=== PATIENT | female | born 1960 | race Caucasian/White ===

== ENCOUNTER 2018-10-06 13:31 | Inpatient (IN) | payer MEDICAID ==
[~2018-10-06] VITALS: Ht 165.1 cm; Wt 87.5 kg
[2018-10-06 13:42] VITALS: BP 226/102
[2018-10-06] MEDS ORDERED: KETOROLAC 30 MG/ML VIAL IVP ONE (13:55)
[2018-10-06] MEDS ORDERED: FUROSEMIDE 40 MG/4 ML VIAL IVP ONE (13:55)
[2018-10-06 14:27] LABS: BASOPHILS # (AUTO) 0.1 K/uL (0.00-0.22); EOSINOPHILS # (AUTO) 0.1 K/uL (0-0.4); EOSINOPHILS % (AUTO) 2.1 % (0.0-4.0); HEMATOCRIT 30.3 % (36-48); HEMOGLOBIN 9.7 g/dL (12.0-16.0); LYMPHOCYTES # (AUTO) 1.3 K/uL (2.5-16.5); MEAN CORPUSCULAR HEMOGLOBIN 31 pg (27-31); MEAN CORPUSCULAR HGB CONC 32 g/dL (33-37); MEAN CORPUSCULAR VOLUME 95.6 fL (80-94); MONOCYTES # (AUTO) 0.4 K/uL (0.8-1.0); MONOCYTES % (AUTO) 6.3 % (1.7-9.3); NEUTROPHILS # (AUTO) 4.2 K/uL (1.8-7.7); NEUTROPHILS % (AUTO) 69.6 % (42.2-75.2); PLATELET COUNT (AUTO) 296 K/uL (140-450); RED BLOOD CELL COUNT(AUTO) 3.16 MIL/uL (4.20-5.40); RED CELL DISTRIBUTION WIDTH 15.6 % (11.6-13.7)
[2018-10-06] MEDS ORDERED: cloNIDine 0.1 MG TAB PO ONE (14:35)
[2018-10-06 14:42] LABS: ALBUMIN 2.2 g/dL (3.4-5.0); ANION GAP 12.1 (8-16); CARBON DIOXIDE 24.2 mmol/L (21-32); CREATININE 2.4 mg/dL (0.6-1.3); TOTAL BILIRUBIN 0.2 mg/dL (0.0-1.0)
[2018-10-06 14:44] LABS: POTASSIUM 6.3 mmol/L (3.5-5.1)
[2018-10-06] MEDS ORDERED: NIFE60TE8 PO (14:45)
[2018-10-06] MEDS ORDERED: FURO-570 PO (14:45)
[2018-10-06] MEDS ORDERED: GABA400C PO (14:45)
[2018-10-06] MEDS ORDERED: ATOR20TA PO (14:45)
[2018-10-06] MEDS ORDERED: traMADol 50 MG TAB PO ONE (14:45)
[2018-10-06] MEDS ORDERED: METF1000 PO (14:45)
[2018-10-06 14:48] LABS: PROTHROMBIN TIME 9.6 secs (10.8-13.4)
[2018-10-06] MEDS ORDERED: CALCIUM GLUCONATE 10% 1,000 MG in NACL 0.9% 50 ML IV ONE (14:55)
[2018-10-06] MEDS ORDERED: ALBUTEROL 0.083% 2.5 MG/3 ML NEBU INH ONE (14:55)
[2018-10-06] MEDS ORDERED: DEXTROSE 50% 50 ML SYR IVP ONE (14:55)
[2018-10-06] MEDS ORDERED: SODIUM POLYSTYRENE 15 GM/60 ML UDBTL PO ONE (14:55)
[2018-10-06] MEDS ORDERED: INSULIN REGULAR, HUMAN 100 UNIT/ML VIAL IVP ONE (14:55)
[2018-10-06] MEDS ORDERED: CALCIUM GLUCONATE 10% 1000 MG/10 ML VIAL ONE (15:11)
[2018-10-06] MEDS ORDERED: DOCUSATE SODIUM 100 MG GELCAP PO PRN (15:15)
[2018-10-06] MEDS ORDERED: HYDROcodone/APAP 5/325 MG 1 TAB TAB PO PRN (15:15)
[2018-10-06] MEDS ORDERED: ACETAMINOPHEN 325 MG TAB PO PRN (15:15)
[2018-10-06] MEDS ORDERED: hydrALAZINE 20 MG/ML VIAL IVP ONE (15:40)
[2018-10-06 15:53] LABS: APPEARANCE,URINE CLEAR (CLEAR); BILIRUBIN,URINE NEGATIVE (NEGATIVE); BLOOD, URINE 1+ (NEGATIVE); COLOR,URINE YELLOW (YELLOW); LEUKOCYTE ESTERASE ,URINE NEGATIVE (NEGATIVE); NITRITE, URINE NEGATIVE (NEGATIVE); PH,URINE 6.5 (5.0-9.0); UGLUCOSE TRACE (NEGATIVE)
[2018-10-06 15:59] LABS: BARBITURATE, URINE NEG. ng/ml (NEG <=200); BENZODIAZEPINE, URINE NEG. ng/mL (NEG <=200); CANNABINOID, URINE NEG. ng/mL (NEG <=50); COCAINE, URINE NEG. ng/mL (NEG <=300); OPIATE, URINE NEG. ng/mL (NEG <=2000); PHENCYCLIDINE SCREEN,URINE NEG. ng/mL (NEG <=25)
[2018-10-06] MEDS ORDERED: DEXTROSE 50% 50 ML SYR IVP PRN (16:05)
[2018-10-06] MEDS ORDERED: INSULIN LISPRO SLIDING SCALE 100 UNITS/ML VIAL SUBQ PRN (16:05)
[2018-10-06 16:11] LABS: CHOL/HDL RATIO 3.1 (1-4.5); MAGNESIUM 2.1 mg/dL (1.8-2.4); PHOSPHORUS 4.5 mg/dL (2.5-4.9); THYROID STIMULATING HORMONE 3.94 uIU/mL (0.34-3.74)
[2018-10-06 16:20] VITALS: BP 135/62
[2018-10-06 16:26] LABS: RBC,URINE 3-10 (FEW) /HPF (0-5); WBC,URINE 0-5 (RARE) /HPF (0-5)
[2018-10-06] MEDS: BLOOD GLUCOSE MONITORING 1 DEV DEV FS SCH ×2 (17:10→20:50)
[2018-10-06 20:00] VITALS: BP 166/74
[2018-10-06] MEDS: ATORVASTATIN 20 MG TAB PO SCH (20:52)
[2018-10-06] MEDS: hydrALAZINE 25 MG TAB PO SCH (20:52)
[2018-10-06] MEDS: ONDANSETRON 4 MG/2 ML VIAL IM/IVP PRN (20:53)
[2018-10-06 20:56] LABS: CARBON DIOXIDE 25.1 mmol/L (21-32); CREATININE 2.5 mg/dL (0.6-1.3)
[2018-10-06 21:00] LABS: POTASSIUM 6.1 mmol/L (3.5-5.1)
[2018-10-06] MEDS ORDERED: NIFEdipine 30 MG TABER PO SCH (21:00)
[2018-10-06] MEDS ORDERED: SODIUM POLYSTYRENE 15 GM/60 ML UDBTL PO SCH (21:30)
[2018-10-07] VITALS: BP 189/93
[2018-10-07] MEDS ORDERED: cloNIDine 0.1 MG TAB PO PRN (00:55)
[2018-10-07] MEDS: ONDANSETRON 4 MG/2 ML VIAL IM/IVP PRN (01:28)
[2018-10-07 01:49] LABS: BARBITURATE, URINE NEG. ng/ml (NEG <=200); BENZODIAZEPINE, URINE NEG. ng/mL (NEG <=200); CANNABINOID, URINE NEG. ng/mL (NEG <=50); COCAINE, URINE NEG. ng/mL (NEG <=300); OPIATE, URINE NEG. ng/mL (NEG <=2000); PHENCYCLIDINE SCREEN,URINE NEG. ng/mL (NEG <=25)
[2018-10-07 04:00] VITALS: BP 145/65
[2018-10-07 05:46] LABS: BASOPHILS # (AUTO) 0.1 K/uL (0.00-0.22); BASOPHILS % (AUTO) 1.2 % (0.0-2.0); EOSINOPHILS # (AUTO) 0.1 K/uL (0-0.4); EOSINOPHILS % (AUTO) 1.7 % (0.0-4.0); HEMATOCRIT 24.8 % (36-48); LYMPHOCYTES # (AUTO) 0.9 K/uL (2.5-16.5); LYMPHOCYTES % (AUTO) 20.6 % (20.5-51.1); MEAN CORPUSCULAR HEMOGLOBIN 31 pg (27-31); MEAN CORPUSCULAR HGB CONC 32 g/dL (33-37); MEAN CORPUSCULAR VOLUME 95.2 fL (80-94); MONOCYTES # (AUTO) 0.3 K/uL (0.8-1.0); MONOCYTES % (AUTO) 7.3 % (1.7-9.3); NEUTROPHILS % (AUTO) 69.2 % (42.2-75.2); PLATELET COUNT (AUTO) 230 K/uL (140-450); RED BLOOD CELL COUNT(AUTO) 2.61 MIL/uL (4.20-5.40); RED CELL DISTRIBUTION WIDTH 15.5 % (11.6-13.7); WHITE BLOOD COUNT (AUTO) 4.3 K/uL (4.8-10.8)
[2018-10-07 06:31] LABS: ANION GAP 12.5 (8-16); CARBON DIOXIDE 21.7 mmol/L (21-32); CREATININE 2.5 mg/dL (0.6-1.3)
[2018-10-07 06:45] LABS: POTASSIUM 6.2 mmol/L (3.5-5.1)
[2018-10-07] MEDS ORDERED: BISACODYL 10 MG SUPP RC SCH (06:45)
[2018-10-07] MEDS: BLOOD GLUCOSE MONITORING 1 DEV DEV FS SCH ×4 (06:51→20:14)
[2018-10-07] MEDS ORDERED: INSULIN REGULAR, HUMAN 100 UNIT/ML VIAL IVP SCH (07:30)
[2018-10-07] MEDS: DEXTROSE 50% 50 ML SYR IVP SCH ×2 (07:30→08:07)
[2018-10-07 08:00] VITALS: BP 141/69
[2018-10-07] MEDS: hydrALAZINE 25 MG TAB PO SCH ×3 (08:45→17:12)
[2018-10-07] MEDS: NIFEdipine 60 MG TABER PO SCH (08:45)
[2018-10-07] MEDS ORDERED: FUROSEMIDE 40 MG/4 ML VIAL IVP SCH (09:00)
[2018-10-07 11:45] VITALS: BP 126/63
[2018-10-07 13:14] LABS: ANION GAP 10.3 (8-16); CARBON DIOXIDE 24.3 mmol/L (21-32); POTASSIUM 5.6 mmol/L (3.5-5.1)
[2018-10-07 13:15] LABS: CREATININE 2.6 mg/dL (0.6-1.3)
[2018-10-07] MEDS ORDERED: NACL 0.9% 1,000 ML IV SCH (13:50)
[2018-10-07] MEDS ORDERED: SODIUM POLYSTYRENE 15 GM/60 ML UDBTL PO SCH (14:00)
[2018-10-07 16:00] VITALS: BP 129/63
[2018-10-07 17:56] LABS: ANION GAP 10.5 (8-16); CREATININE 2.8 mg/dL (0.6-1.3); POTASSIUM 5.5 mmol/L (3.5-5.1)
[2018-10-07 20:00] VITALS: BP 110/59
[2018-10-07] MEDS: FUROSEMIDE 20 MG/2 ML VIAL IVP SCH (20:15)
[2018-10-07] MEDS: ATORVASTATIN 20 MG TAB PO SCH (20:19)
[2018-10-07 22:30] LABS: ANION GAP 10.3 (8-16); CARBON DIOXIDE 24.2 mmol/L (21-32); CREATININE 2.8 mg/dL (0.6-1.3); POTASSIUM 5.5 mmol/L (3.5-5.1)
[2018-10-08] VITALS (7 sets, daily range): BP systolic 130–174; BP diastolic 62–81
[2018-10-08] MEDS: BLOOD GLUCOSE MONITORING 1 DEV DEV FS SCH ×4 (06:48→21:02)
[2018-10-08] MEDS ORDERED: cloNIDine 0.1 MG TAB PO PRN (07:10)
[2018-10-08] MEDS ORDERED: SODIUM POLYSTYRENE 15 GM/60 ML UDBTL PO SCH ×2 (07:30)
[2018-10-08 08:26] LABS: FOLIC ACID 5.9 ng/mL (>3.0)
[2018-10-08] MEDS: NIFEdipine 60 MG TABER PO SCH (08:40)
[2018-10-08] MEDS ORDERED: HYDR-4420 PO (08:40)
[2018-10-08] MEDS: hydrALAZINE 25 MG TAB PO SCH ×4 (08:40→21:04)
[2018-10-08] MEDS: FUROSEMIDE 20 MG/2 ML VIAL IVP SCH (08:41)
[2018-10-08] MEDS ORDERED: FUROSEMIDE 20 MG/2 ML VIAL IVP SCH (09:00)
[2018-10-08] MEDS ORDERED: hydrALAZINE 20 MG/ML VIAL IVP SCH (11:00)
[2018-10-08 18:57] LABS: BASOPHILS # (AUTO) 0.1 K/uL (0.00-0.22); BASOPHILS % (AUTO) 1.1 % (0.0-2.0); EOSINOPHILS # (AUTO) 0.2 K/uL (0-0.4); EOSINOPHILS % (AUTO) 3.6 % (0.0-4.0); HEMOGLOBIN 8.1 g/dL (12.0-16.0); LYMPHOCYTES # (AUTO) 1.5 K/uL (2.5-16.5); LYMPHOCYTES % (AUTO) 26.9 % (20.5-51.1); MEAN CORPUSCULAR HEMOGLOBIN 31 pg (27-31); MEAN CORPUSCULAR HGB CONC 32 g/dL (33-37); MEAN CORPUSCULAR VOLUME 94.9 fL (80-94); MONOCYTES # (AUTO) 0.4 K/uL (0.8-1.0); MONOCYTES % (AUTO) 7.8 % (1.7-9.3); NEUTROPHILS # (AUTO) 3.3 K/uL (1.8-7.7); NEUTROPHILS % (AUTO) 60.6 % (42.2-75.2); PLATELET COUNT (AUTO) 248 K/uL (140-450); RED BLOOD CELL COUNT(AUTO) 2.64 MIL/uL (4.20-5.40); RED CELL DISTRIBUTION WIDTH 14.8 % (11.6-13.7); WHITE BLOOD COUNT (AUTO) 5.5 K/uL (4.8-10.8)
[2018-10-08 19:11] LABS: ANION GAP 9.9 (8-16); CARBON DIOXIDE 26.1 mmol/L (21-32); CREATININE 2.9 mg/dL (0.6-1.3)
[2018-10-08] MEDS: ATORVASTATIN 20 MG TAB PO SCH (21:04)
[2018-10-09 03:41] VITALS: BP 138/67
[2018-10-09 06:04] LABS: ANION GAP 11.6 (8-16); CARBON DIOXIDE 24.3 mmol/L (21-32); CREATININE 3.1 mg/dL (0.6-1.3); POTASSIUM 4.9 mmol/L (3.5-5.1)
[2018-10-09] MEDS: BLOOD GLUCOSE MONITORING 1 DEV DEV FS SCH ×4 (06:34→20:07)
[2018-10-09 08:00] VITALS: BP 176/84
[2018-10-09] MEDS: hydrALAZINE 25 MG TAB PO SCH ×3 (08:41→17:47)
[2018-10-09] MEDS: NIFEdipine 60 MG TABER PO SCH (08:41)
[2018-10-09] MEDS ORDERED: FUROSEMIDE 20 MG TAB PO SCH (09:00)
[2018-10-09] MEDS ORDERED: FURO20TA8 PO (09:11)
[2018-10-09] MEDS ORDERED: HYDR-4420 PO (09:11)
[2018-10-09] MEDS ORDERED: ADA60 PO (09:11)
[2018-10-09] MEDS ORDERED: GLIP10TE PO (11:20)
[2018-10-09] MEDS ORDERED: GABA400C PO (11:41)
[2018-10-09 12:00] VITALS: BP 181/77
[2018-10-09] MEDS ORDERED: hydrALAZINE 25 MG TAB PO SCH (12:30)
[2018-10-09 16:00] VITALS: BP 159/77
[2018-10-09 20:00] VITALS: BP 148/76
[2018-10-09] MEDS: ATORVASTATIN 20 MG TAB PO SCH (20:09)
[2018-10-09] MEDS ORDERED: INFLUENZA VIRUS VACCINE QUAD 0.5 ML SYR IMVAC PRN (20:30)
[2018-10-09] MEDS ORDERED: PNEUMOCOCCAL VACCINE 23 MCG/0.5 ML VIAL IMVAC PRN (20:30)
[2018-10-10 00:05] VITALS: BP 145/67
[2018-10-10 04:00] VITALS: BP 158/82
[2018-10-10] MEDS: ONDANSETRON 4 MG/2 ML VIAL IM/IVP PRN (05:22)
[2018-10-10] MEDS: BLOOD GLUCOSE MONITORING 1 DEV DEV FS SCH ×3 (05:25→14:40)
[2018-10-10 08:00] VITALS: BP 179/82
[2018-10-10] MEDS: hydrALAZINE 25 MG TAB PO SCH ×3 (08:14→16:16)
[2018-10-10] MEDS: NIFEdipine 60 MG TABER PO SCH (08:14)
[2018-10-10 08:55] LABS: ANION GAP 11.4 (8-16); CARBON DIOXIDE 24.5 mmol/L (21-32); CREATININE 2.9 mg/dL (0.6-1.3); POTASSIUM 4.9 mmol/L (3.5-5.1)
[2018-10-10] MEDS ORDERED: NIFEdipine 30 MG TABER PO SCH (11:00)
[2018-10-10] MEDS ORDERED: hydrALAZINE 25 MG TAB PO SCH (11:00)
[2018-10-10 12:00] VITALS: BP 165/75
[2018-10-10] MEDS ORDERED: ENALAPRILAT 2.5 MG/2 ML VIAL IVP SCH (13:00)
[2018-10-10] MEDS ORDERED: TRAM50TA1 PO (14:55)
[2018-10-10 16:00] VITALS: BP 125/67
== END 2018-10-10 16:25 | disposition home or self-care (01) | DRG 52 ==
LOC: MED 13:31 → MTU 15:17
PROVIDERS: ADMIT General Practice; ATTEND General Practice
PROC: 3E0234Z Introduction of Serum, Toxoid and Vaccine into Muscle, Percutaneous Approach (ICD-10-PCS; principal; 2018-10-09)
PROC: 3E02340 Introduction of Influenza Vaccine into Muscle, Percutaneous Approach (ICD-10-PCS; 2018-10-09)
DX: I67.4 Hypertensive encephalopathy (principal); N17.0 Acute kidney failure with tubular necrosis; E43 Unspecified severe protein-calorie malnutrition; I50.43 Acute on chronic combined systolic (congestive) and diastolic (congestive) heart failure; E87.5 Hyperkalemia; N18.9 Chronic kidney disease, unspecified; Z68.32 Body mass index [BMI] 32.0-32.9, adult; E66.9 Obesity, unspecified; Z71.3 Dietary counseling and surveillance; D64.9 Anemia, unspecified; E83.51 Hypocalcemia; I11.0 Hypertensive heart disease with heart failure; E11.22 Type 2 diabetes mellitus with diabetic chronic kidney disease; E78.5 Hyperlipidemia, unspecified; D63.8 Anemia in other chronic diseases classified elsewhere; E66.01 Morbid (severe) obesity due to excess calories; E11.21 Type 2 diabetes mellitus with diabetic nephropathy; Z91.19 Patient's noncompliance with other medical treatment and regimen; R60.9 Edema, unspecified; Z23 Encounter for immunization
CPT/HCPCS: 36415; 70450; 71045; 80048; 80053; 80305; 81001; 82272; 82570; 82607; 82728; 82746; 82948; 83036; 83540; 83690; 83735; 83880; 84100; 84134; 84443; 84484; 85025; 85045; 85610; 85730; 86160; 87081; 90658; 90732; 93005; 93976; 94640; 96365; 96375; 99285; J0360; J0610; J1815; J1885; J1940; J2405; J3490; J7030; J7613; Q0092

== ENCOUNTER 2018-11-06 14:04 | Inpatient (IN) | payer MEDICAID ==
[~2018-11-06] VITALS: Ht 157.5 cm; Wt 90.7 kg
[~2018-11-06 14:04] MED LIST: ADA60 PO; ATOR20TA PO; FURO20TA8 PO; GABA400C PO; GLIP10TE PO; HYDR-4420 PO; TRAM50TA1 PO
--- NOTE | 2018-11-06 14:10 | NUR ---
PT TO ER BED 7
--- NOTE | 2018-11-06 14:24 | NUR ---
PT PROVIDING URINE AT THIS TIME.
[2018-11-06 14:27] VITALS: BP 199/104
--- NOTE | 2018-11-06 14:38 | NUR ---
PATIENT PRESENTS TO ED WITH THE CHIEF C/O SOB AND EDEMA. EDEMA ON BL LOWER EXTREMITIES. PLACED PT ON O2 AT 2 LTR/MIN. HOB ELEVATED. PER FAMILY, PT IS HAVING SOB FOR 3 DAYS AND EDEMA FOR 2 MONTHS. TAKING LASIX 20 MG TWICE DAILY W/O RELIEF. DENIES N/D. VOMITED X1 TODAY. NO BLOOD IN VOMIT. SKIN IS PINK/WARM/DRY; AAOX4 WITH EVEN AND STEADY GAIT; LUNGS CLEAR BL; HR EVEN AND REGULAR. HAD FEVER YESTERDAY PER FAMILY. DENIES CP, COUGH AT THIS TIME. PATIENT STATES BACK PAIN OF 8/10 AT THIS TIME. VSS; PATIENT POSITIONED FOR COMFORT. BEDRAILS UP X2; BED DOWN. ER MD MADE AWARE OF PT STATUS.
--- NOTE | 2018-11-06 14:44 | NUR ---
SEEN BY ER DOCTOR.
[2018-11-06] MEDS ORDERED: FUROSEMIDE 40 MG/4 ML VIAL IVP ONE (15:00)
[2018-11-06 15:11] LABS: BASOPHILS # (AUTO) 0.1 K/uL (0.00-0.22); BASOPHILS % (AUTO) 1.1 % (0.0-2.0); EOSINOPHILS # (AUTO) 0.1 K/uL (0-0.4); EOSINOPHILS % (AUTO) 2.7 % (0.0-4.0); HEMATOCRIT 25.1 % (36-48); LYMPHOCYTES # (AUTO) 0.9 K/uL (2.5-16.5); LYMPHOCYTES % (AUTO) 16.6 % (20.5-51.1); MEAN CORPUSCULAR HEMOGLOBIN 31 pg (27-31); MEAN CORPUSCULAR HGB CONC 32 g/dL (33-37); MEAN CORPUSCULAR VOLUME 96.1 fL (80-94); MONOCYTES # (AUTO) 0.4 K/uL (0.8-1.0); NEUTROPHILS # (AUTO) 3.8 K/uL (1.8-7.7); NEUTROPHILS % (AUTO) 71.6 % (42.2-75.2); PLATELET COUNT (AUTO) 307 K/uL (140-450); RED BLOOD CELL COUNT(AUTO) 2.61 MIL/uL (4.20-5.40); RED CELL DISTRIBUTION WIDTH 15.4 % (11.6-13.7); WHITE BLOOD COUNT (AUTO) 5.3 K/uL (4.8-10.8)
[2018-11-06] MEDS ORDERED: METF1000 PO (15:23)
[2018-11-06] MEDS ORDERED: LIP80 PO (15:23)
[2018-11-06] MEDS ORDERED: FURO-570 PO (15:23)
[2018-11-06 15:37] LABS: ALBUMIN 2.4 g/dL (3.4-5.0); ANION GAP 14.1 (8-16); CARBON DIOXIDE 22.3 mmol/L (21-32); CREATININE 3.5 mg/dL (0.6-1.3)
--- NOTE | 2018-11-06 15:44 | NUR ---
ANALISA CALLED FROM LAB TO REPORT CRITICAL POTTASIUM: 6.4 . ER MD DIMAS MADE AWARE.
[2018-11-06 15:45] LABS: POTASSIUM 6.4 mmol/L (3.5-5.1)
[2018-11-06 15:49] LABS: PROTHROMBIN TIME 9.8 secs (10.8-13.4)
[2018-11-06] MEDS ORDERED: SODIUM BICARBONATE 8.4% PFS 50 MEQ/50 ML SYR IVP ONE (15:50)
[2018-11-06] MEDS ORDERED: CALCIUM CHLORIDE 10% 100 MG/ML SYR IVP ONE (15:50)
[2018-11-06] MEDS ORDERED: INSULIN REGULAR, HUMAN 100 UNIT/ML VIAL IVP ONE (15:50)
[2018-11-06] MEDS ORDERED: DEXTROSE 50% 50 ML SYR IVP ONE (15:50)
[2018-11-06 15:59] LABS: TOTAL BILIRUBIN 0.3 mg/dL (0.0-1.0)
--- NOTE | 2018-11-06 16:00 | NUR ---
PT EATING TUNA SANDWHICH IN BED. NO S/S OF DISTRESS NOTED.
[2018-11-06] MEDS ORDERED: ONDANSETRON 4 MG/2 ML VIAL IVP PRN (16:20)
[2018-11-06] MEDS ORDERED: HYDROcodone/APAP 7.5/325 MG 1 TAB PO PRN (16:20)
[2018-11-06] MEDS ORDERED: ACETAMINOPHEN 325 MG TAB PO PRN (16:20)
[2018-11-06] MEDS ORDERED: cloNIDine 0.1 MG TAB PO ONE ×2 (16:35→16:45)
--- NOTE | 2018-11-06 16:39 | NUR ---
PER CHARGE NURSE ON MST THEY NEED 15 MINS TO PREPARE BED.
[2018-11-06 17:02] LABS: CHOL/HDL RATIO 2.3 (1-4.5); FREE T4 (FREE THYROXINE) 0.95 ng/dL (0.76-1.46); PHOSPHORUS 4.9 mg/dL (2.5-4.9)
--- NOTE | 2018-11-06 17:03 | NUR ---
Patient will be admitted to care of DR. CARRERA. Admited to TELE. Will go to room 119B. Belongings list completed. Report to BRYAN FOX.
[2018-11-06 17:10] VITALS: BP 194/92
[2018-11-06] MEDS ORDERED: INSULIN LISPRO SLIDING SCALE 100 UNITS/ML VIAL SUBQ PRN (17:10)
[2018-11-06] MEDS ORDERED: DEXTROSE 50% 50 ML SYR IVP PRN (17:10)
--- NOTE | 2018-11-06 17:10 | NUR ---
PATIENT ADMITTED FROM ED. C/O SOB AT HOME X2 DAYS. PATIENT ARRIVED ON [place]. SBAR REPORT RECEIVED FROM RN AT BEDSIDE. PATIENT IS ALERT AND ORIENTED. DAUGHTER AT BEDSIDE. PATIENT AMBULATORY TO BED. FOLLOWS COMMANDS. ON ROOM AIR, NO ACUTE RESPIRATORY DISTRESS NOTED. DENIES PAIN. EDEMA NOTED BLE. OFFLOADED PRESSURE AREAS. IV SITE PATENT AND INTACT. ORIENTED PT TO HOSPITAL ENVIRONMENT AND PLAN OF CARE, IN AGREEMENT. CALL LIGHT WITHIN REACH, EXPLAINED TO PT NEED FOR CALLING WHEN AMBULATING TO BATHROOM, IN AGREEMENT.
[2018-11-06 17:13] LABS: APPEARANCE,URINE CLEAR (CLEAR); BILIRUBIN,URINE NEGATIVE (NEGATIVE); BLOOD, URINE 1+ (NEGATIVE); COLOR,URINE YELLOW (YELLOW); LEUKOCYTE ESTERASE ,URINE NEGATIVE (NEGATIVE); NITRITE, URINE NEGATIVE (NEGATIVE); UGLUCOSE 1+ (NEGATIVE)
[2018-11-06 17:19] LABS: BARBITURATE, URINE NEG. ng/ml (NEG <=200); BENZODIAZEPINE, URINE NEG. ng/mL (NEG <=200); CANNABINOID, URINE NEG. ng/mL (NEG <=50); COCAINE, URINE NEG. ng/mL (NEG <=300); OPIATE, URINE NEG. ng/mL (NEG <=2000); PHENCYCLIDINE SCREEN,URINE NEG. ng/mL (NEG <=25)
--- NOTE | 2018-11-06 17:30 | NUR ---
DR. TANG AWARE OF PATIENT TRENDING BP INCREASED. SBP 190S. NEW ORDERS RECEIVED TO START TONIGHT. NO NEW MEDS AT THIS TIME, CONTINUE TO MONITOR.
[2018-11-06 17:33] LABS: RBC,URINE 11-20 (MOD) /HPF (0-5)
--- NOTE | 2018-11-06 17:50 | NUR ---
PATIENT SEEN BY DR. TANG AT BEDSIDE, MD AWARE OF INCREASED BP AND AUDIBLE WHEEZES, NEW ORDERS RECEIVED, NEW MEDICATIONS TO START TONIGHT. DAUGHTER AT BEDSIDE, MADE AWARE OF CURRENT PLAN OF CARE, IN AGREEMENT.
[2018-11-06] MEDS ORDERED: SODIUM POLYSTYRENE 15 GM/60 ML UDBTL PO SCH ×2 (18:00→20:00)
[2018-11-06] MEDS ORDERED: traMADol 50 MG TAB PO SCH (18:00)
[2018-11-06] MEDS ORDERED: ALBUTEROL SULFATE/IPRATROPIU 3 ML SOL IH PRN (18:20)
[2018-11-06] MEDS ORDERED: FUROSEMIDE 40 MG/4 ML VIAL IVP SCH (18:24)
[2018-11-06] MEDS: NACL 0.9% 1,000 ML IV SCH (18:27)
[2018-11-06 19:16] LABS: ANION GAP 10.5 (8-16); CARBON DIOXIDE 24.9 mmol/L (21-32); CREATININE 3.4 mg/dL (0.6-1.3)
--- NOTE | 2018-11-06 19:28 | NUR ---
SBAR REPORT GIVEN TO RN SUMMER AT PT BEDSIDE. PATIENT IN BATHROOM, DAUGHTER AT BEDSIDE. NO ACUTE DISTRESS NOTED.
--- NOTE | 2018-11-06 19:28 | NUR ---
RECEIVED BEDSIDE REPORT FROM RN BRYAN, PATIENT IN BATHROOM HAD 2 BM POST KAYEXALATE ADMINISTRATION. PATIENT AMBULATORY AND STEADY GAIT, AMBULATED TO BED WITHOUT ASSISTANCE, NO SOB NOTED. PN RA, IV IN LEFT AC 22G SL. V/S TAKEN NOTED BP 155/80 HR 77, DAY SHIFT RN STATED BP HAS BEEN HIGH AND DOCTORS AWARE. EXPLAINED PLAN OF CARE UPDATED BORED. BG 119 NO COVERAGE, NOTED 2 + EDEMA IN LOWER EXTREMITIES, DAY SHIFT NURSE STATED THEY GAVE LASIX. PATIENT C/O PAIN / WILL GIVE TYLENOL.
--- NOTE | 2018-11-06 19:30 | NUR ---
CHARGE NURSE KIMI STATED THERE WAS CRITICAL FOR K 6.4. CALLED DR RANGEL TO NOTIFY, ORDERS TO GIVE MORE KAYEXALATE.
[2018-11-06 19:31] LABS: POTASSIUM 6.4 mmol/L (3.5-5.1)
[2018-11-06 20:00] VITALS: BP 155/80
[2018-11-06] MEDS: BLOOD GLUCOSE MONITORING 1 DEV DEV FS SCH (20:26)
[2018-11-06] MEDS: ATORVASTATIN 20 MG TAB PO SCH (20:42)
[2018-11-06] MEDS: DOCUSATE SODIUM 100 MG GELCAP PO SCH (20:42)
[2018-11-06] MEDS: NIFEdipine 60 MG TABER PO SCH (20:43)
[2018-11-06] MEDS: hydrALAZINE 25 MG TAB PO SCH (20:43)
--- NOTE | 2018-11-06 20:43 | NUR ---
DUE MEDICATIONS GIVEN, PATIENT TOLERATED WELL.
--- NOTE | 2018-11-06 22:05 | NUR ---
IV HIGH PRESSURE ALARM, FLUSHED WITH 5 ML NS, RESOLVED.
[2018-11-07] VITALS: BP 146/96
--- NOTE | 2018-11-07 01:06 | NUR ---
PT C/O FEELING NAUSEOUS GAVE ZOFRAN.
[2018-11-07 01:45] LABS: ANION GAP 10.9 (8-16); CARBON DIOXIDE 24.3 mmol/L (21-32); CREATININE 3.4 mg/dL (0.6-1.3); POTASSIUM 5.2 mmol/L (3.5-5.1)
[2018-11-07] MEDS ORDERED: SODIUM POLYSTYRENE 15 GM/60 ML UDBTL PO ONE (02:30)
[2018-11-07 04:00] VITALS: BP 125/95
--- NOTE | 2018-11-07 04:00 | NUR ---
V/S TAKEN ALL WITHIN BASELINE WILL CONTINUE TO MONITOR.
[2018-11-07] MEDS: BLOOD GLUCOSE MONITORING 1 DEV DEV FS SCH ×4 (06:30→20:48)
--- NOTE | 2018-11-07 06:32 | NUR ---
BG 117 NO COVERAGE NEEDED
[2018-11-07] MEDS: ALBUTEROL SULFATE/IPRATROPIU 3 ML SOL IH SCH ×3 (07:00→19:00)
[2018-11-07 07:17] LABS: BASOPHILS # (AUTO) 0.1 K/uL (0.00-0.22); BASOPHILS % (AUTO) 1.4 % (0.0-2.0); EOSINOPHILS # (AUTO) 0.1 K/uL (0-0.4); EOSINOPHILS % (AUTO) 2.8 % (0.0-4.0); HEMATOCRIT 23.2 % (36-48); HEMOGLOBIN 7.4 g/dL (12.0-16.0); LYMPHOCYTES # (AUTO) 0.8 K/uL (2.5-16.5); LYMPHOCYTES % (AUTO) 18.9 % (20.5-51.1); MEAN CORPUSCULAR HEMOGLOBIN 31 pg (27-31); MEAN CORPUSCULAR HGB CONC 32 g/dL (33-37); MEAN CORPUSCULAR VOLUME 96.3 fL (80-94); MONOCYTES # (AUTO) 0.4 K/uL (0.8-1.0); MONOCYTES % (AUTO) 8.3 % (1.7-9.3); NEUTROPHILS % (AUTO) 68.6 % (42.2-75.2); PLATELET COUNT (AUTO) 291 K/uL (140-450); RED BLOOD CELL COUNT(AUTO) 2.41 MIL/uL (4.20-5.40); RED CELL DISTRIBUTION WIDTH 15.2 % (11.6-13.7); WHITE BLOOD COUNT (AUTO) 4.3 K/uL (4.8-10.8)
[2018-11-07 07:29] LABS: ANION GAP 10.9 (8-16); CARBON DIOXIDE 24.3 mmol/L (21-32); CREATININE 3.2 mg/dL (0.6-1.3); POTASSIUM 5.2 mmol/L (3.5-5.1)
--- NOTE | 2018-11-07 07:37 | NUR ---
ENDORSED PT TO DAY SHIFT RN, PATIENT STABLE.
--- NOTE | 2018-11-07 07:40 | NUR ---
RECEIVED BEDSIDE REPORT FROM CLINICAL OB NURSE. PT IS AOX4. NO SIGNS OF DISTRESS NOTED. DENIED OF PAIN. SKIN INTACT, DRY AND CLEAN. IV PATENT AND INTACT, INFUSING PER MD ORDER. IV SITE CLEAN AND DRY. RESPIRATION ARE EVEN AND UNLABORED, SPO2 94% IN RA. ABLE TO AMBULATE WITH STEADY, AND ABLE TO FOLLOW COMMANDS. 1+ EDEMA NOTED ON BLE. DISCUSSED PLAN OF CARE FOR TODAY, AND PATIENT VERBALIZED UNDERSTANDING. SAFETY MEASURES IN PLACE. BED IN LOW POSITION, CALL LIGHT WITHIN REACH.
[2018-11-07 07:49] LABS: MAGNESIUM 2.3 mg/dL (1.8-2.4); PHOSPHORUS 5.4 mg/dL (2.5-4.9)
[2018-11-07 08:00] VITALS: BP 179/86
--- NOTE | 2018-11-07 08:48 | NUR ---
PATIENT HAS BEEN SCREENED AND CATEGORIZED MODERATE NUTRITION RISK. PATIENT WILL BE SEEN WITHIN 3-5 DAYS OF ADMISSION. CONSULT RECEIVED FOR MALNUTRITION. LOW ALBUMIN IS NOT AN INDICATOR OF MALNUTRITION. BMI:36.6KG/M2 (OBESE) WITH NO S/S OF MUSCLE WASTING. 11/08/18-11/10/[address]
[2018-11-07] MEDS ORDERED: hydrALAZINE 25 MG TAB PO SCH (09:00)
[2018-11-07] MEDS ORDERED: NIFEdipine 60 MG TABER PO SCH (09:00)
--- NOTE | 2018-11-07 10:20 | NUR ---
PT'S IV CAME OFF AT THIS TIME. IV CATHETER TIP INTACT AND COMPLETED, NO BLEEDING AT IV SITE. RESTARTED A NEW IV ON L FA 22G, INTACT AND PATENT, INFUSING PER MD ORDER.
[2018-11-07] MEDS: DOCUSATE SODIUM 100 MG GELCAP PO SCH ×2 (10:24→20:47)
[2018-11-07] MEDS: NIFEdipine 60 MG TABER PO SCH ×2 (10:25→20:47)
[2018-11-07] MEDS: hydrALAZINE 25 MG TAB PO SCH ×4 (10:25→20:47)
[2018-11-07] MEDS: FUROSEMIDE 40 MG/4 ML VIAL IVP SCH ×2 (10:26→17:27)
[2018-11-07] MEDS: PANTOPRAZOLE 40 MG INJ VIAL IVP SCH (10:27)
--- NOTE | 2018-11-07 10:30 | NUR ---
ADMINISTERED MEDS PER MD ORDER. PT TOLERATED WELL. NO SIGNS OF DISTRESS NOTED. DENIES PAIN.
--- NOTE | 2018-11-07 11:18 | NUR ---
PT'S DAUGHTER NIESHA IS AT BEDSIDE. NO SIGNS OF DISTRESS NOTED. DENIES PAIN. IV IS INFUSING PER MD ORDER.
[2018-11-07 12:00] VITALS: BP 184/79
--- NOTE | 2018-11-07 12:41 | NUR ---
PT REFUSED BREATHING TX NO SIGNS OF DISTRESS NOTED AT THIS TIME FAMILY AT BEDSIDE PT EATING LUNCH
--- NOTE | 2018-11-07 13:49 | NUR ---
ADMINISTERED MEDS PER MD ORDER. PT TOLERATED WELL. NO SIGNS OF DISTRESS NOTED. DENIES PAIN. PT IS TALKING WITH FAMILY AT THIS TIME.
--- NOTE | 2018-11-07 15:09 | NUR ---
PT IS WATCHING TV ON BED. NO SIGNS OF DISTRESS NOTED. DENIES PAIN. VISITOR IS AT BEDSIDE.
[2018-11-07 16:00] VITALS: BP 145/74
[2018-11-07] MEDS: NACL 0.9% 1,000 ML IV SCH (16:18)
[2018-11-07] MEDS: CALCIUM ACETATE 667 MG TAB PO SCH (17:28)
--- NOTE | 2018-11-07 17:34 | NUR ---
ADMINISTERED MEDS PER MD ORDER. PT TOLERATED WELL. NO SIGNS OF DISTRESS NOTED. PER PATIENT, SHE WOULD LIKE TO TURN OFF THE TV AND GET SOME NAP. INSTRUCTED PT TO USE THE CALL LIGHT TO TURN OFF TV.
[2018-11-07 18:37] LABS: ANION GAP 10.5 (8-16); CREATININE 3.3 mg/dL (0.6-1.3); POTASSIUM 4.5 mmol/L (3.5-5.1)
--- NOTE | 2018-11-07 19:07 | NUR ---
RECEIVED PATIENT ON ROOM AIR, PULSE OX SAT 96%. PATIENT DENIES SOB. BREATH SOUNDS CLEAR. PATIENT REFUSED BREATHING TREATMENT AT THIS TIME, STATING SHE DOES NOT NEED THE TREATMENT BECAUSE SHE IS NOT SHORT OF BREATH. NO RESPIRATORY DISTRESS NOTED AT THIS TIME. WILL CONTINUE TO MONITOR.
--- NOTE | 2018-11-07 19:28 | NUR ---
GAVE BEDSIDE REPORT TO LOG DECKMAN NURSE FOR CONTINUITY OF CARE. PT IS IN STABLE CONDITION.
--- NOTE | 2018-11-07 19:30 | NUR ---
RECEIVED BEDSIDE REPORT FROM DAY SHIFT RN, PATIENT AMBULATORY AND STEADY GAIT, AMBULATED TO BED WITHOUT ASSISTANCE, NO SOB NOTED. IV LEFT HAND 22 G SL. V/S TAKEN NOTED BP 146/64 HR 98, EXPLAINED PLAN OF CARE UPDATED BORED. BG 133 NO COVERAGE, NOTED EDEMA IN LOWER EXTREMITIES. EXPLAINED PLAN OF CARE WILL CONTINUE TO MONITOR.
[2018-11-07 20:00] VITALS: BP 146/64
[2018-11-07] MEDS: ATORVASTATIN 20 MG TAB PO SCH (20:47)
--- NOTE | 2018-11-07 20:47 | NUR ---
DUE MEDICATIONS GIVE, EDUCATION PROVIDED, WILL CONTINUE TO MONITOR.
[2018-11-08] VITALS: BP 130/48
--- NOTE | 2018-11-08 01:05 | NUR ---
PATIENT RESTING IN BED NO SIGNS OF DISTRESS, WILL CONTINUE TO MONITOR.
[2018-11-08 02:34] LABS: CREATININE,URINE RANDOM 60 mg/dL (30-125); URINE PROTEIN QUANT RANDOM 724 mg/dL (15-45)
--- NOTE | 2018-11-08 02:41 | NUR ---
PATIENT SLEEPING IN BED, NO SIGNS OF DISTRESS, WILL CONTINUE TO MONITOR.
[2018-11-08 03:46] VITALS: BP 148/68
--- NOTE | 2018-11-08 03:48 | NUR ---
ENDORSED PATIENT TO CHARGE NURSE SANTIAGO, PATIENT STABLE.
--- NOTE | 2018-11-08 03:49 | NUR ---
RECEIVED PT FROM SUMMER RN PT ENGLISH SPEAKER AAOX4 AMBULATORY , ON TELEMETRY SR IV ON LEFT FA INFUSING WELL TKO, NOT DISTRESS NOTED AT THIS TIME INITIAL ASSESMENT DONE
--- NOTE | 2018-11-08 04:30 | NUR ---
SPONGE BATH GIVEN LINEN CHANGED PY IS ASSISTED TO THE RESTROOM PT HAS A BM, NOT DISTESS NOTED ON TELEMETRY SR
[2018-11-08] MEDS: BLOOD GLUCOSE MONITORING 1 DEV DEV FS SCH ×4 (06:24→21:19)
--- NOTE | 2018-11-08 06:41 | NUR ---
BLOOD SUGAR TEST 129 PT ON TELEMETRY SR NOT DISTRESS NOTED
[2018-11-08] MEDS: ALBUTEROL SULFATE/IPRATROPIU 3 ML SOL IH SCH ×3 (06:59→18:50)
--- NOTE | 2018-11-08 07:24 | NUR ---
RECEIVED BEDSIDE REPORT FROM PARKING LOT SUPERVISOR RN FOR CONTINUITY OF CARE. PT IN STABLE CONDITION. NO C/O PAIN OR DISCOMFORT. NO S/S DISTRESS. RESPIRATIONS EVEN AND UNLABORED. HEART RHYTHM REGULAR. ACTIVE BS IN ALL QUADRANTS. ABDOMEN SOFT AND NON-DISTENDED. SKIN INTACT. PT IS AMBULATORY WITHOUT ASSIST. IV SITE PATENT AND ASYPMTOMATIC. ALL SAFETY PRECAUTIONS IN PLACE, WILL CONTINUE TO MONITOR.
[2018-11-08 08:00] VITALS: BP 149/71
[2018-11-08 08:06] LABS: BASOPHILS # (AUTO) 0.1 K/uL (0.00-0.22); BASOPHILS % (AUTO) 1.3 % (0.0-2.0); EOSINOPHILS # (AUTO) 0.2 K/uL (0-0.4); EOSINOPHILS % (AUTO) 4.3 % (0.0-4.0); HEMATOCRIT 21.4 % (36-48); LYMPHOCYTES % (AUTO) 22.6 % (20.5-51.1); MEAN CORPUSCULAR HEMOGLOBIN 31 pg (27-31); MEAN CORPUSCULAR HGB CONC 32 g/dL (33-37); MEAN CORPUSCULAR VOLUME 96.2 fL (80-94); MONOCYTES # (AUTO) 0.4 K/uL (0.8-1.0); MONOCYTES % (AUTO) 9.6 % (1.7-9.3); NEUTROPHILS # (AUTO) 2.7 K/uL (1.8-7.7); NEUTROPHILS % (AUTO) 62.2 % (42.2-75.2); PLATELET COUNT (AUTO) 297 K/uL (140-450); RED BLOOD CELL COUNT(AUTO) 2.22 MIL/uL (4.20-5.40); RED CELL DISTRIBUTION WIDTH 15.3 % (11.6-13.7); WHITE BLOOD COUNT (AUTO) 4.3 K/uL (4.8-10.8)
[2018-11-08 08:16] LABS: CARBON DIOXIDE 24.5 mmol/L (21-32); CREATININE 3.3 mg/dL (0.6-1.3); MAGNESIUM 2.1 mg/dL (1.8-2.4); PHOSPHORUS 5.7 mg/dL (2.5-4.9); POTASSIUM 4.5 mmol/L (3.5-5.1)
[2018-11-08 08:25] LABS: HEMOGLOBIN 6.9 g/dL (12.0-16.0)
[2018-11-08] MEDS ORDERED: CIPR500T4 PO (08:27)
[2018-11-08] MEDS: CALCIUM ACETATE 667 MG TAB PO SCH (09:41)
[2018-11-08] MEDS: DOCUSATE SODIUM 100 MG GELCAP PO SCH ×2 (10:05→21:01)
[2018-11-08] MEDS: hydrALAZINE 25 MG TAB PO SCH ×4 (10:05→21:01)
[2018-11-08] MEDS: NIFEdipine 60 MG TABER PO SCH ×2 (10:05→21:00)
[2018-11-08] MEDS: FUROSEMIDE 40 MG/4 ML VIAL IVP SCH ×2 (10:41→16:52)
[2018-11-08] MEDS: PANTOPRAZOLE 40 MG INJ VIAL IVP SCH (10:41)
[2018-11-08] MEDS: ACETAMINOPHEN 325 MG TAB PO SCH ×3 (11:24→20:59)
--- NOTE | 2018-11-08 11:50 | NUR ---
STARTED 1 U PRBC TRANSFUSION. VITALS STABLE.
[2018-11-08 12:00] VITALS: BP 158/67
--- NOTE | 2018-11-08 13:14 | NUR ---
PT RESTING IN BED, WATCHING TV. NO S/S DISTRESS. NO S/S BLOOD TRANSFUSION RXN. WILL CONTINUE TO MONITOR.
--- NOTE | 2018-11-08 15:30 | NUR ---
1 UNIT OF PRBC TRANSFUSION COMPLETE. NO REACTION. VITALS STABLE.
[2018-11-08 16:00] VITALS: BP 153/71
[2018-11-08] MEDS: NACL 0.9% 1,000 ML IV SCH (16:18)
--- NOTE | 2018-11-08 16:29 | NUR ---
TYLENOL AND BENADRYL NOT GIVEN. 1 UNIT PRBC COMPLETE. NO FURTHER TRANSFUSION NEEDED.
--- NOTE | 2018-11-08 18:50 | NUR ---
RECEIVED PATIENT ON ROOM AIR, PULSE OX SAT 97%. PATIENT REFUSING BREATHING TREATMENT AT THIS TIME. PATIENT DENIES SOB. PATIENT STATES SHE "DOES NOT NEED A BREATHING TREATMENT." NO RESPIRATORY DISTRESS NOTED AT THIS TIME. WILL CONTINUE TO MONITOR.
--- NOTE | 2018-11-08 19:31 | NUR ---
ENDORSED POC TO SCREENER AND BLENDER RN. PT IN STABLE CONDITION.
--- NOTE | 2018-11-08 19:32 | NUR ---
REPORT RECEIVED FROM AM NURSE AT BEDSIDE. PT IN STABLE CONDITION. AAOX4. INTRODUCED SELF TO PT. BOARD UPDATED. NO COMPLAINTS OF PAIN. NO SOB. AFEBRILE. IV SITE L FA 20G RUNNING NS@10ML/HR TKO PATENT AND INTACT. SKIN WARM, DRY, AND INTACT WITH NO OPEN WOUNDS. BED LOCKED IN LOW POSITION. CALL CUELLAR WITHIN REACH. SAFETY PRECAUTIONS IN PLACE. ALL NEEDS MET AT THIS TIME.
[2018-11-08 20:08] LABS: BASOPHILS # (AUTO) 0.1 K/uL (0.00-0.22); BASOPHILS % (AUTO) 1.3 % (0.0-2.0); EOSINOPHILS # (AUTO) 0.2 K/uL (0-0.4); EOSINOPHILS % (AUTO) 3.2 % (0.0-4.0); HEMATOCRIT 27.2 % (36-48); HEMOGLOBIN 8.8 g/dL (12.0-16.0); LYMPHOCYTES # (AUTO) 1.1 K/uL (2.5-16.5); LYMPHOCYTES % (AUTO) 21.4 % (20.5-51.1); MEAN CORPUSCULAR HEMOGLOBIN 31 pg (27-31); MEAN CORPUSCULAR HGB CONC 32 g/dL (33-37); MEAN CORPUSCULAR VOLUME 95.6 fL (80-94); MONOCYTES # (AUTO) 0.5 K/uL (0.8-1.0); MONOCYTES % (AUTO) 9.1 % (1.7-9.3); NEUTROPHILS # (AUTO) 3.3 K/uL (1.8-7.7); PLATELET COUNT (AUTO) 335 K/uL (140-450); RED BLOOD CELL COUNT(AUTO) 2.85 MIL/uL (4.20-5.40); RED CELL DISTRIBUTION WIDTH 15.4 % (11.6-13.7); WHITE BLOOD COUNT (AUTO) 5.1 K/uL (4.8-10.8)
--- NOTE | 2018-11-08 20:10 | NUR ---
PT WANTED TO SHOWER. MD NOTIFIED. NEW ORDERS PUT IN.
--- NOTE | 2018-11-08 21:00 | NUR ---
BENADRYL, TYLENOL, ADALAT, COLACE, AND LIPITOR GIVEN PO. HEPARIN GIVEN SUBQ. ROCEPHIN HUNG AND RUNNING. BS 112. NO INSULIN COVERAGE NEEDED. PT TOLERATED WELL.
[2018-11-08] MEDS: ATORVASTATIN 20 MG TAB PO SCH (21:01)
[2018-11-09] VITALS: BP 158/71
--- NOTE | 2018-11-09 | NUR ---
PT SLEEPING COMFORTABLY BUT AROUSABLE. NO S/S OF DISTRESS NOTED. VS STABLE. WILL CONTINUE TO MONITOR.
--- NOTE | 2018-11-09 02:30 | NUR ---
PT SLEEPING COMFORTABLY IN BED. NO S/S OF DISTRESS NOTED. NO COMPLAINTS OF PAIN AFEBRILE. NO SOB. WILL CONTINUE TO MONITOR.
--- NOTE | 2018-11-09 05:00 | NUR ---
PT SLEEPING COMFORTABLY. NO S/S OF DISTRESS NOTED. WILL CONTINUE TO MONITOR.
[2018-11-09] MEDS: BLOOD GLUCOSE MONITORING 1 DEV DEV FS SCH (05:48)
--- NOTE | 2018-11-09 05:48 | NUR ---
BS 86. NO INSULIN COVERAGE NEEDED.
[2018-11-09] MEDS: ALBUTEROL SULFATE/IPRATROPIU 3 ML SOL IH SCH (06:52)
--- NOTE | 2018-11-09 07:15 | NUR ---
RECEIVED BEDSIDE REPORT FROM SKETCH MAKER NURSE ALICIA. PATIENT SLEEPING AT THIS TIME. PATIENT ON MED SURGE AND STANDARD PRECAUTIONS. IV ON R FA 20 G INFUSING NS AT 10 TKO, CLEAN DRY INTACT AND PATENT. SKIN INTACT. PATIENT AMBULATORY AND CONTINENT. BED IN LOW POSITION, CALL LIGHT WITHIN REACH. WILL CONTINUE TO MONITOR.
[2018-11-09 07:51] LABS: BASOPHILS # (AUTO) 0.1 K/uL (0.00-0.22); BASOPHILS % (AUTO) 1.3 % (0.0-2.0); EOSINOPHILS # (AUTO) 0.2 K/uL (0-0.4); EOSINOPHILS % (AUTO) 3.7 % (0.0-4.0); HEMATOCRIT 24.7 % (36-48); HEMOGLOBIN 8.1 g/dL (12.0-16.0); LYMPHOCYTES # (AUTO) 1.1 K/uL (2.5-16.5); LYMPHOCYTES % (AUTO) 21.2 % (20.5-51.1); MEAN CORPUSCULAR HEMOGLOBIN 31 pg (27-31); MEAN CORPUSCULAR HGB CONC 33 g/dL (33-37); MEAN CORPUSCULAR VOLUME 94.7 fL (80-94); MONOCYTES # (AUTO) 0.4 K/uL (0.8-1.0); MONOCYTES % (AUTO) 8.8 % (1.7-9.3); NEUTROPHILS # (AUTO) 3.3 K/uL (1.8-7.7); PLATELET COUNT (AUTO) 293 K/uL (140-450); RED BLOOD CELL COUNT(AUTO) 2.61 MIL/uL (4.20-5.40); RED CELL DISTRIBUTION WIDTH 15.6 % (11.6-13.7); WHITE BLOOD COUNT (AUTO) 5.1 K/uL (4.8-10.8)
[2018-11-09 08:00] VITALS: BP 153/71
[2018-11-09 08:39] LABS: MAGNESIUM 2.2 mg/dL (1.8-2.4); PHOSPHORUS 5.9 mg/dL (2.5-4.9)
[2018-11-09 08:40] LABS: ANION GAP 10.2 (8-16); CARBON DIOXIDE 24.7 mmol/L (21-32); CREATININE 3.5 mg/dL (0.6-1.3); POTASSIUM 4.9 mmol/L (3.5-5.1)
[2018-11-09] MEDS ORDERED: EPOETIN ALFA 4,000 UNITS/ML VIAL SUBQ SCH (09:10)
[2018-11-09] MEDS: DOCUSATE SODIUM 100 MG GELCAP PO SCH (09:20)
[2018-11-09] MEDS: PANTOPRAZOLE 40 MG INJ VIAL IVP SCH (09:20)
[2018-11-09] MEDS: hydrALAZINE 25 MG TAB PO SCH (09:21)
[2018-11-09] MEDS: NIFEdipine 60 MG TABER PO SCH (09:21)
[2018-11-09] MEDS: FUROSEMIDE 40 MG/4 ML VIAL IVP SCH (09:23)
--- NOTE | 2018-11-09 09:41 | NUR ---
ADMINISTERED SCHEDULED MEDS TO PATIENT. PATIENT TOLERATED WELL. WILL CONTINUE TO MONITOR. FAMILY AT BEDSIDE.
[2018-11-09] MEDS ORDERED: HYDR-4420 PO (10:18)
[2018-11-09] MEDS ORDERED: FURO-570 PO (10:18)
[2018-11-09] MEDS ORDERED: LIP80 PO (10:18)
[2018-11-09] MEDS ORDERED: METF1000 PO (10:18)
[2018-11-09] MEDS ORDERED: GABA400C PO (10:18)
[2018-11-09] MEDS ORDERED: ADA60 PO (10:18)
--- NOTE | 2018-11-09 11:47 | NUR ---
GAVE PATIENT DISCHARGE INSTRUCTIONS. EDUCATED PATIENT TO FOLLOW UP WITH PCP WITHIN 5-7 DAYS AND TO VISIT PRODUCTION DISPATCHER DOCTOR. EDUCATED PATIENT TO RETURN TO NEAREST ER WHEN EXPERIENCING SOB, FEVER, PAIN, ETC. EDUCATED PATIENT ON MEDICATIONS AND SIDE EFFECTS AND PROVIDED PATIENT WITH TIMES OF MEDS GIVEN IN HOSPITAL REQUESTED. ANSWERED ALL QUESTIONS AND CONCERNS. PATIENT VERBALIZED UNDERSTANDING. REMOVED WRIST BAND AND IV. IV TIP INTACT.
[2018-11-09] MEDS ORDERED: LABETALOL 200 MG TAB PO SCH (21:00)
== END 2018-11-09 11:40 | disposition home or self-care (01) | DRG 469 ==
LOC: MED 14:04 → MTU 16:18
PROVIDERS: ADMIT General Practice; ATTEND General Practice
PROC: 30233N1 Transfusion of Nonautologous Red Blood Cells into Peripheral Vein, Percutaneous Approach (ICD-10-PCS; principal; 2018-11-06)
DX: N17.0 Acute kidney failure with tubular necrosis (principal); J96.00 Acute respiratory failure, unspecified whether with hypoxia or hypercapnia; E43 Unspecified severe protein-calorie malnutrition; I50.43 Acute on chronic combined systolic (congestive) and diastolic (congestive) heart failure; D68.59 Other primary thrombophilia; E11.22 Type 2 diabetes mellitus with diabetic chronic kidney disease; E11.40 Type 2 diabetes mellitus with diabetic neuropathy, unspecified; I13.0 Hypertensive heart and chronic kidney disease with heart failure and stage 1 through stage 4 chronic kidney disease, or unspecified chronic kidney disease; E11.65 Type 2 diabetes mellitus with hyperglycemia; E87.8 Other disorders of electrolyte and fluid balance, not elsewhere classified; E83.39 Other disorders of phosphorus metabolism; E83.41 Hypermagnesemia; E87.5 Hyperkalemia; I16.1 Hypertensive emergency; N39.0 Urinary tract infection, site not specified; E78.5 Hyperlipidemia, unspecified; E87.70 Fluid overload, unspecified; N18.4 Chronic kidney disease, stage 4 (severe); E83.51 Hypocalcemia; D63.1 Anemia in chronic kidney disease; Z68.36 Body mass index [BMI] 36.0-36.9, adult
CPT/HCPCS: 36415; 71045; 80048; 80053; 80305; 81001; 82140; 82150; 82570; 82948; 83036; 83605; 83690; 83735; 83880; 84100; 84157; 84439; 84443; 84484; 85025; 85610; 85730; 86886; 86900; 86901; 86920; 87040; 87081; 87086; 93005; 94640; 96374; 96375; 99291; C9113; J0696; J0885; J1644; J1815; J1940; J2405; J7030; J7060; J7620; P9016; P9038; Q0092; Q0163

== ENCOUNTER 2018-12-01 14:25 | Inpatient (IN) | payer SELFPAY ==
[~2018-12-01] VITALS: Ht 162.6 cm; Wt 94.8 kg
[~2018-12-01 14:25] MED LIST changes: -ATOR20TA PO; +FURO-570 PO; -FURO20TA8 PO; -GLIP10TE PO; +LIP80 PO; -TRAM50TA1 PO
[2018-12-01 14:47] VITALS: BP 171/78
--- NOTE | 2018-12-01 15:12 | NUR ---
PT TO ER BED 5
[2018-12-01] MEDS ORDERED: PANTOPRAZOLE 40 MG INJ VIAL IVP ONE (15:30)
[2018-12-01] MEDS ORDERED: BUMETANIDE 1 MG/4 ML VIAL IV ONE (15:30)
[2018-12-01] MEDS ORDERED: SPIRONOLACTONE 25 MG TAB PO ONE (15:30)
--- NOTE | 2018-12-01 15:30 | NUR ---
58/F BIB [facility] C/O NAUSEA, GENERALIZED WEAKNESS X 3 DAYS. ASCITES; FATIGUE; PITTING EDEMA BLE --NOT AWARE OF ANY LIVER ISSUES --RECENT ADMISSIONS OCT 06---DC OCT 10, 2018 NOV 06---DC NOV 09, 2018 HX---ANEMIA, CKD, HTN, RX---? Addendum: 12/01/18 at 1822 by [email or web address] PT URENATED,SPECIMEN SENT TO LAB Addendum: 12/01/18 at 1827 by [email or web address] MIRA'Brittany GONSALES.
--- NOTE | 2018-12-01 15:49 | NUR ---
PT TAKEN TO CT
[2018-12-01 16:32] LABS: BASOPHILS # (AUTO) 0.1 K/uL (0.00-0.22); BASOPHILS % (AUTO) 1.7 % (0.0-2.0); EOSINOPHILS # (AUTO) 0.2 K/uL (0-0.4); EOSINOPHILS % (AUTO) 3.1 % (0.0-4.0); HEMATOCRIT 27.1 % (36-48); HEMOGLOBIN 8.7 g/dL (12.0-16.0); LYMPHOCYTES % (AUTO) 19.1 % (20.5-51.1); MEAN CORPUSCULAR HEMOGLOBIN 31 pg (27-31); MEAN CORPUSCULAR HGB CONC 32 g/dL (33-37); MEAN CORPUSCULAR VOLUME 96.2 fL (80-94); MONOCYTES # (AUTO) 0.4 K/uL (0.8-1.0); MONOCYTES % (AUTO) 7.7 % (1.7-9.3); NEUTROPHILS # (AUTO) 3.4 K/uL (1.8-7.7); NEUTROPHILS % (AUTO) 68.4 % (42.2-75.2); PLATELET COUNT (AUTO) 321 K/uL (140-450); RED BLOOD CELL COUNT(AUTO) 2.81 MIL/uL (4.20-5.40); RED CELL DISTRIBUTION WIDTH 15.1 % (11.6-13.7)
[2018-12-01 16:36] LABS: APPEARANCE,URINE CLEAR (CLEAR); BILIRUBIN,URINE NEGATIVE (NEGATIVE); BLOOD, URINE 2+ (NEGATIVE); COLOR,URINE YELLOW (YELLOW); LEUKOCYTE ESTERASE ,URINE NEGATIVE (NEGATIVE); NITRITE, URINE NEGATIVE (NEGATIVE); UGLUCOSE 1+ (NEGATIVE)
[2018-12-01 16:44] LABS: WBC,URINE 20-60 /HPF (0-5)
[2018-12-01 16:44] LABS: AMYLASE 37 U/L (25-115); LIPASE 114 U/L (73-393)
[2018-12-01 16:47] LABS: PROTHROMBIN TIME 9.5 secs (10.8-13.4)
[2018-12-01 16:52] LABS: ALBUMIN 2.6 g/dL (3.4-5.0); ANION GAP 13.5 (8-16); CARBON DIOXIDE 23.2 mmol/L (21-32); CREATININE 3.3 mg/dL (0.6-1.3); POTASSIUM 5.7 mmol/L (3.5-5.1); TOTAL BILIRUBIN 0.2 mg/dL (0.0-1.0)
[2018-12-01] MEDS ORDERED: FUROSEMIDE 40 MG/4 ML VIAL IVP ONE (17:05)
[2018-12-01] MEDS ORDERED: ALBUTEROL 0.083% 2.5 MG/3 ML NEBU INH ONE (17:05)
[2018-12-01] MEDS ORDERED: SODIUM POLYSTYRENE 15 GM/60 ML UDBTL PR ONE (17:05)
[2018-12-01] MEDS ORDERED: MORPHINE SULFATE 2 MG/ML SYR IVP PRN (17:40)
[2018-12-01] MEDS ORDERED: NACL 0.9% 1,000 ML IV SCH (17:40)
[2018-12-01] MEDS ORDERED: DOCUSATE SODIUM 100 MG GELCAP PO PRN (17:40)
[2018-12-01] MEDS ORDERED: ONDANSETRON 4 MG/2 ML VIAL IM/IVP PRN (17:40)
[2018-12-01] MEDS ORDERED: HYDROcodone/APAP 5/325 MG 1 TAB TAB PO PRN (17:40)
[2018-12-01] MEDS ORDERED: ACETAMINOPHEN 325 MG TAB PO PRN (17:40)
--- NOTE | 2018-12-01 18:20 | NUR ---
PT URENATED AT THIS TIME. PT STATED "I PEE A GOOD AMOUNT".
--- NOTE | 2018-12-01 18:43 | NUR ---
Patient will be admitted to care of DR CARRERA. Admited to TELE. Will go to room 119B. Belongings list completed. Report to JYOTI FOX.
--- NOTE | 2018-12-01 18:48 | NUR ---
PT ARRIVED FROM ER IN [facility], REPORT RECIEVED FROM SALES ADMINISTRATOR, PT PLACED ON LOCOMOTIVE CRANE OPERATOR, PT ORIENTED TO ROOM AND FLOOR, VITALS 169/79, HR 84, 95% RA, 98.2 TEMPORAL, RR 16, EXTRA BLANKET PROVIDED FOR COMFORT, PT WITH CALL CUELLAR WITHIN REACH, SAFETY MEASURES IN PLACE.
[2018-12-01 19:06] LABS: MAGNESIUM 2.4 mg/dL (1.8-2.4); PHOSPHORUS 5.2 mg/dL (2.5-4.9); THYROID STIMULATING HORMONE 4.47 uIU/mL (0.34-3.74)
[2018-12-01] MEDS ORDERED: HYDR-4420 PO (19:22)
[2018-12-01] MEDS ORDERED: LIP80 PO (19:22)
[2018-12-01] MEDS ORDERED: ADA60 PO (19:22)
[2018-12-01 19:30] VITALS: BP 157/77
--- NOTE | 2018-12-01 19:30 | NUR ---
REPORT GIVEN TO ROCKET ENGINE MECHANIC NURSE, PT IN STABLE CONDITION.
[2018-12-01] MEDS ORDERED: MELATONIN 3 MG TAB PO PRN (19:35)
[2018-12-01] MEDS ORDERED: MECLIZINE 25 MG TAB PO PRN (19:40)
--- NOTE | 2018-12-01 19:40 | NUR ---
RECEIVED BEDSIDE REPORT FROM DAY SHIFT NURSE FOR CONTINUITY OF CARE. PATIENT AWAKE, ALERT, RESPIRATION EVEN UNLABORED ON ROOM AIR. DENIES PAIN.SKIN IS WARM AND DRY. IV PATENT AND INTACT. BILATERAL LOWER EXTREMITY PITTING EDEMA NOTED. ABDOMEN ROUND, SOFT, AND NON-TENDER. BOWEL SOUNDS PRESENT IN 4 QUADRANTS. PLAN OF CARE WAS DISCUSSED ORIENT PATIENT TO ROOM, STAFF, AND CALL LIGHT. ALL SAFETY MEASURES ARE IN PLACE. PLACED PATIENT IN SEMI-POLK, BED IN LOW POSITION,CALL LIGHT IN REACH AND VERBALIZED ITS USE. WILL CONTINUE TO MONITOR
[2018-12-01] MEDS ORDERED: INSULIN LISPRO SLIDING SCALE 100 UNITS/ML VIAL SUBQ PRN ×2 (19:50)
[2018-12-01] MEDS ORDERED: DEXTROSE 50% 50 ML SYR IVP PRN (19:50)
[2018-12-01] MEDS ORDERED: SODIUM POLYSTYRENE 15 GM/60 ML UDBTL PO SCH (20:00)
--- NOTE | 2018-12-01 20:40 | NUR ---
INITIAL ASSESSMENT DONE. VITALS WERE TAKEN. ALL DUE MEDS WERE GIVEN PER ORDER. NO ASE NOTED. BED IS AT LOW POSITION. CALL LIGHT WITHIN REACH. WILL CONTINUE TO MONITOR
[2018-12-01] MEDS: NIFEdipine 60 MG TABER PO SCH (20:56)
[2018-12-01] MEDS: ATORVASTATIN 20 MG TAB PO SCH (20:56)
[2018-12-01] MEDS: hydrALAZINE 25 MG TAB PO SCH (20:56)
[2018-12-01] MEDS: BLOOD GLUCOSE MONITORING 1 DEV DEV FS SCH (21:09)
--- NOTE | 2018-12-01 21:30 | NUR ---
PATIENT IV INFILTRATED. D/C AND STARTED A NEW IV SITE. NO ACTIVE BLEEDING SEEN. IV CANNULA INTACT. WILL CONTINUE TO MONITOR.
--- NOTE | 2018-12-01 23:00 | NUR ---
PATIENT OFF UNIT WENT TO RADIOLOGY IN STABLE CONDITION.
[2018-12-02] VITALS (7 sets, daily range): BP systolic 122–168; BP diastolic 66–90
--- NOTE | 2018-12-02 | NUR ---
PATIENT CAME BACK FROM RADIOLOGY. VITALS WERE TAKEN. PATIENT IN STABLE CONDITION.
--- NOTE | 2018-12-02 02:30 | NUR ---
INSERTED XIONG CATHETER PER ORDER. PATIENT TOLERATED WELL. XIONG CATHETER DRAINING YELLOW URINE. WILL CONTINUE TO MONITOR.
--- NOTE | 2018-12-02 04:00 | NUR ---
CHECKED PATIENT. VITALS WERE TAKEN. PATIENT BP 168/90. ADMINISTERED PRN HYDRALAZINE. WILL CONTINUE TO MONITOR.
[2018-12-02] MEDS ORDERED: hydrALAZINE 20 MG/ML VIAL IVP ONE (04:55)
--- NOTE | 2018-12-02 06:00 | NUR ---
RECHECKED PATIENT BP AFTER ADMINISTERING HYDRALAZINE. PATIENT BP: 141/70 P: 75. NO DISTRESS NOTED.
[2018-12-02] MEDS: BLOOD GLUCOSE MONITORING 1 DEV DEV FS SCH ×4 (06:06→20:50)
[2018-12-02 07:24] LABS: BASOPHILS # (AUTO) 0.1 K/uL (0.00-0.22); BASOPHILS % (AUTO) 1.8 % (0.0-2.0); EOSINOPHILS # (AUTO) 0.1 K/uL (0-0.4); EOSINOPHILS % (AUTO) 3.1 % (0.0-4.0); HEMATOCRIT 23.2 % (36-48); HEMOGLOBIN 7.6 g/dL (12.0-16.0); LYMPHOCYTES # (AUTO) 0.8 K/uL (2.5-16.5); LYMPHOCYTES % (AUTO) 18.1 % (20.5-51.1); MEAN CORPUSCULAR HEMOGLOBIN 32 pg (27-31); MEAN CORPUSCULAR HGB CONC 33 g/dL (33-37); MONOCYTES # (AUTO) 0.3 K/uL (0.8-1.0); NEUTROPHILS # (AUTO) 2.9 K/uL (1.8-7.7); PLATELET COUNT (AUTO) 268 K/uL (140-450); RED BLOOD CELL COUNT(AUTO) 2.42 MIL/uL (4.20-5.40); RED CELL DISTRIBUTION WIDTH 15.2 % (11.6-13.7); WHITE BLOOD COUNT (AUTO) 4.2 K/uL (4.8-10.8)
--- NOTE | 2018-12-02 07:24 | NUR ---
RECEIVED BEDSIDE REPORT FROM RUDDY PARRA. PT STABLE, AWAKE, AND ALERT AND ORIENTED X4. NO SIGNS OF DISTRESS NOTED. DENIES PAIN OR SOB. NO REDNESS, SWELLING, OR INFLAMMATION NOTED ON IV SITE. CALL CUELLAR WITHIN REACH. BED IN LOWEST POSITION. SAFETY MEASURES IN PLACE. PLAN OF CARE REVIEWED.
--- NOTE | 2018-12-02 07:25 | NUR ---
ENDORSED PATIENT TO DAY SHIFT NURSE FOR CONTINUITY OF CARE. PATIENT STABLE AT THIS TIME.
[2018-12-02 07:31] LABS: MAGNESIUM 2.3 mg/dL (1.8-2.4); PHOSPHORUS 5.4 mg/dL (2.5-4.9)
[2018-12-02 07:36] LABS: ANION GAP 14.5 (8-16); CARBON DIOXIDE 22.1 mmol/L (21-32); CREATININE 3.2 mg/dL (0.6-1.3); POTASSIUM 4.6 mmol/L (3.5-5.1)
[2018-12-02 07:37] LABS: CHOL/HDL RATIO 2.4 (1-4.5)
[2018-12-02 08:24] LABS: T4 (THYROXINE) 6.3 ug/dL (4.5-12.0)
--- NOTE | 2018-12-02 08:31 | NUR ---
PATIENT HAS BEEN SCREENED AND CATEGORIZED MODERATE NUTRITION RISK. PATIENT WILL BE SEEN WITHIN 3-5 DAYS OF ADMISSION. 12/04/18SH[address]
[2018-12-02] MEDS ORDERED: FUROSEMIDE 40 MG/4 ML VIAL IVP SCH ×2 (09:00→13:00)
[2018-12-02] MEDS: hydrALAZINE 25 MG TAB PO SCH ×2 (09:09→20:46)
[2018-12-02] MEDS: NIFEdipine 60 MG TABER PO SCH ×2 (09:11→20:46)
--- NOTE | 2018-12-02 09:20 | NUR ---
BP TAKEN, 158/81 HR 67. ADMINISTERED SCHEDULED MEDICATIONS. PT TOLERATED WELL. NO OTHER NEEDS AT THIS TIME. PT AT THE BEDSIDE.
[2018-12-02] MEDS ORDERED: ALBUMIN HUMAN 25% 50 ML IV SCH (10:30)
--- NOTE | 2018-12-02 11:30 | NUR ---
DR MOSER AT BEDSIDE.
--- NOTE | 2018-12-02 13:10 | NUR ---
ADMINISTERED SCHEDULED MEDICATION. PT TOLERATED WELL. NO OTHER NEEDS AT THIS TIME.
--- NOTE | 2018-12-02 15:20 | NUR ---
PT STABLE, AWAKE, AND ALERT. DAUGHTER AT THE BEDSIDE. PER DR CUENCA, KEEP XIONG CATHETER IN PLACE TO MONITOR INTAKE AND OUTPUT.
--- NOTE | 2018-12-02 16:15 | NUR ---
DR. MILLER AT BEDSIDE FOR PARACENTESIS PROCEDURE, 2L OUTPUT. PT STABLE, AWAKE, AND ALERT. DAUGHTER AT BEDSIDE.
[2018-12-02 17:52] LABS: GLUCOSE,BODY FLUID 122 mg/dL
--- NOTE | 2018-12-02 18:00 | NUR ---
PT STABLE, SLEEPING, BUT EASILY AROUSABLE. NO NEEDS AT THIS TIME.
--- NOTE | 2018-12-02 19:20 | NUR ---
ENDORSED PT TO RN ANDIE FOR CONTINUITY OF CARE. PT STABLE, AWAKE, AND ALERT.
--- NOTE | 2018-12-02 19:25 | NUR ---
RECEIVED PT ON BED, AAOX4, VITAL SIGNS TAKEN, BP SLIGHTLY ELEVATED, ASYMPTOMATIC, WILL ADMINISTER DUE BP MEDICATION, LEFT ABDOMEN PARACENTESIS DRESSING DRY AND INTACT, XIONG CATHETER DRAINING WELL, PLAN OF CARE DISCUSSED, SAFETY MEASURES IN PLACE, CALL LIGHT WITHIN REACH.
[2018-12-02 20:32] LABS: SPECIMENTYPE,BODY FLUID PARACENTESIS
[2018-12-02 20:33] LABS: APPEARANCE,SPUN,BODY FLUID CLEAR (CLEAR); APPEARANCE,UNSPUN,BODY FLUID HAZY (CLEAR); COLOR,BODY FLUID LT YELLOW (LT YELLOW); TOTAL VOLUME,BODY FLUID 1475 mL
[2018-12-02 20:43] LABS: RBC, BODY FLUID 3 /cu. mm.; WBC, BODY FLUID 2 /cu. mm.
[2018-12-02] MEDS: ATORVASTATIN 20 MG TAB PO SCH (20:46)
--- NOTE | 2018-12-02 21:10 | NUR ---
PT STATED DISCOMFORT FROM XIONG CATHETER, REQUESTING IT TO BE DC, PER DR PAT MANCUSO TO DC XIONG, XIONG CATHETER DISCONTINUED BY INDUSTRIAL TRUCK OPERATOR LINDA, INSTRUCTED PT TO MEASURE URINE OUTPUT, VERBALIZED UNDERSTANDING, ALL NEEDS ATTENDED.
--- NOTE | 2018-12-02 21:40 | NUR ---
PT AMBULATED TO BR WITH STEADY GAIT, VOIDED FREELY WITH 150ML CLEAR YELLOW URINE, MONITORED CLOSELY.
--- NOTE | 2018-12-02 23:50 | NUR ---
PT SLEEPING, EASILY AROUSABLE, VITAL SIGNS TAKEN, BP SLIGHTLY ELEVATED, ASYMPTOMATIC, DENIES ANY PAIN, NO DRAINAGE NOTED ON THE PARACENTESIS SITE, CONTINUE TO MONITOR CLOSELY.
[2018-12-03] VITALS: BP 156/87
--- NOTE | 2018-12-03 03:50 | NUR ---
PT SLEEPING, EASILY AROUSABLE, VITAL SIGNS STABLE, DENIES PAIN, PROVIDED WITH CRACKERS AND JELLO PER REQUEST, MONITORED CLOSELY.
[2018-12-03 04:00] VITALS: BP 147/71
[2018-12-03 05:30] LABS: BARBITURATE, URINE NEG. ng/ml (NEG <=200); BENZODIAZEPINE, URINE NEG. ng/mL (NEG <=200); CANNABINOID, URINE NEG. ng/mL (NEG <=50); COCAINE, URINE NEG. ng/mL (NEG <=300); OPIATE, URINE NEG. ng/mL (NEG <=2000); PHENCYCLIDINE SCREEN,URINE NEG. ng/mL (NEG <=25)
--- NOTE | 2018-12-03 06:10 | NUR ---
BLOOD SUGAR CHECKED WITH 90 RESULT, PT DENIES ANY PAIN, MONITORED CLOSELY.
[2018-12-03] MEDS: BLOOD GLUCOSE MONITORING 1 DEV DEV FS SCH ×4 (07:03→20:39)
--- NOTE | 2018-12-03 07:20 | NUR ---
PT REPORT RECEIVED FROM ABSTRACT SEARCHER NURSE AT BEDSIDE. PT IS AWAKE AND ALERT, NO S/S OF ACUTE DISTRESS OR SOB NOTED. NO C/O PAIN. PT IS ON ROOM AIR, SKIN INTACT. IV SITE ON R HAND, 22 G, SALINE LOCKED. PT IS ON STRICT I&O'S, WITH FLUID RESTRICTION OF 1500 ML/DAY. CALL LIGHT IS WITHIN REACH. WILL CONTINUE TO MONITOR.
--- NOTE | 2018-12-03 07:20 | NUR ---
PT AWAKE, NO SIGNS OF DISTRESS, BEDSIDE REPORT GIVEN TO RUDDY REID FOR CONTINUITY OF CARE.
[2018-12-03 07:23] LABS: BASOPHILS # (AUTO) 0.1 K/uL (0.00-0.22); BASOPHILS % (AUTO) 1.3 % (0.0-2.0); EOSINOPHILS # (AUTO) 0.2 K/uL (0-0.4); EOSINOPHILS % (AUTO) 4.6 % (0.0-4.0); HEMOGLOBIN 7.9 g/dL (12.0-16.0); LYMPHOCYTES # (AUTO) 0.9 K/uL (2.5-16.5); LYMPHOCYTES % (AUTO) 19.5 % (20.5-51.1); MEAN CORPUSCULAR HEMOGLOBIN 32 pg (27-31); MEAN CORPUSCULAR HGB CONC 33 g/dL (33-37); MEAN CORPUSCULAR VOLUME 95.3 fL (80-94); MONOCYTES # (AUTO) 0.4 K/uL (0.8-1.0); NEUTROPHILS # (AUTO) 2.9 K/uL (1.8-7.7); NEUTROPHILS % (AUTO) 65.6 % (42.2-75.2); PLATELET COUNT (AUTO) 280 K/uL (140-450); RED BLOOD CELL COUNT(AUTO) 2.52 MIL/uL (4.20-5.40); RED CELL DISTRIBUTION WIDTH 15.8 % (11.6-13.7); WHITE BLOOD COUNT (AUTO) 4.4 K/uL (4.8-10.8)
[2018-12-03 07:46] LABS: CARBON DIOXIDE 22.4 mmol/L (21-32); CREATININE 3.2 mg/dL (0.6-1.3); POTASSIUM 4.4 mmol/L (3.5-5.1)
[2018-12-03 08:00] VITALS: BP 144/65
--- NOTE | 2018-12-03 09:10 | NUR ---
PT DID NOT WANT TO EAT BREAKFAST, ASKED FOR A CHICKEN SANDWICH INSTEAD. PT WILL TAKE HER MEDS AFTER SHE EATS. VISITOR AT PT'S BEDSIDE. NO S/S OF ANY ACUTE DISTRESS. WILL CONTINUE TO MONITOR.
[2018-12-03] MEDS: hydrALAZINE 25 MG TAB PO SCH ×2 (09:44→20:38)
[2018-12-03] MEDS: NIFEdipine 60 MG TABER PO SCH (09:44)
[2018-12-03] MEDS: FUROSEMIDE 100 MG in DEXTROSE 5% 100 ML IV SCH (10:30)
--- NOTE | 2018-12-03 10:58 | NUR ---
PT BEING SEEN BY DR GALO
--- NOTE | 2018-12-03 11:33 | NUR ---
COLLECTED PT'S URINE AND TAKEN TO LAB PER DR. GALO'S ORDER.
[2018-12-03 12:00] VITALS: BP 156/73
[2018-12-03] MEDS ORDERED: FUROSEMIDE 100 MG in DEXTROSE 5% 100 ML IV SCH ×4 (14:00)
[2018-12-03 16:00] VITALS: BP 156/73
--- NOTE | 2018-12-03 18:00 | NUR ---
PT URINATED 200 ML.
--- NOTE | 2018-12-03 18:10 | NUR ---
PT TAKING A SHOWER AT THIS TIME
--- NOTE | 2018-12-03 19:25 | NUR ---
PT ENDORSED TO EXERCISER HORSE IN STABLE CONDITION.
--- NOTE | 2018-12-03 19:26 | NUR ---
RECEIVED PT BACK FROM TAKING SHOWER, AMBULATORY WITH STEADY GAIT, RESUMED LASIX DRIP AT 6ML/H, VITAL SIGNS TAKEN, BP SLIGHTLY ELEVATED, ASYMPTOMATIC, DENIES ANY PAIN AND NO SOB NOTED, PT AWARE OF STRICT I & O AND FLUID RESTRICTION, PLAN OF CARE DISCUSSED, SAFETY MEASURES IN PLACE, CALL LIGHT WITHIN REACH.
[2018-12-03 20:00] VITALS: BP 157/73
[2018-12-03] MEDS: ATORVASTATIN 20 MG TAB PO SCH (20:37)
--- NOTE | 2018-12-03 20:40 | NUR ---
BLOOD SUGAR CHECKED WITH 138 RESULT, SNACK PROVIDED, AWARE OF FLUID RESTRICTION, DUE MEDS TAKEN, ALL NEEDS ATTENDED.
--- NOTE | 2018-12-03 22:10 | NUR ---
PER PT AMBULATED TO BR, VOIDED FREELY WITH 100 ML CLEAR YELLOW URINE, PT WENT BACK TO SLEEP, MONITORED CLOSELY.
[2018-12-04] VITALS: BP 138/75
--- NOTE | 2018-12-04 | NUR ---
PT SLEEPING, EASILY AROUSABLE, VITAL SIGNS STABLE, DENIES ANY PAIN, NO SOB NOTED, LASIX DRIP AT 6ML/H INFUSING WELL, CONTINUE TO MONITOR CLOSELY.
[2018-12-04 04:00] VITALS: BP 149/76
--- NOTE | 2018-12-04 04:00 | NUR ---
PT SLEEPING, EASILY AROUSABLE, VITAL SIGNS STABLE, DENIES PAIN, NO SOB NOTED, LASIX DRIP INFUSING WELL, MONITORED CLOSELY.
--- NOTE | 2018-12-04 05:40 | NUR ---
BLOOD SUGAR CHECKED WITH 102 RESULT, NO COVERAGE NEEDED, MONITORED CLOSELY.
[2018-12-04] MEDS: FUROSEMIDE 100 MG in DEXTROSE 5% 100 ML IV SCH (06:29)
--- NOTE | 2018-12-04 06:30 | NUR ---
PT AMBULATED TO BR AND VOIDED 300ML CLEAR YELLOW OUTPUT, NEW LASIX DRIP BAG STARTED INFUSING AT 6ML/H, NO RESP DISTRESS NOTED, MONITORED CLOSELY.
[2018-12-04 06:43] LABS: ALBUMIN 2.2 g/dL (3.4-5.0); ANION GAP 13.4 (8-16); CARBON DIOXIDE 22.9 mmol/L (21-32); CREATININE 3.3 mg/dL (0.6-1.3); POTASSIUM 4.3 mmol/L (3.5-5.1); TOTAL BILIRUBIN 0.2 mg/dL (0.0-1.0)
[2018-12-04 06:47] LABS: BASOPHILS # (AUTO) 0.1 K/uL (0.00-0.22); BASOPHILS % (AUTO) 1.9 % (0.0-2.0); EOSINOPHILS # (AUTO) 0.2 K/uL (0-0.4); EOSINOPHILS % (AUTO) 5.2 % (0.0-4.0); HEMATOCRIT 23.1 % (36-48); HEMOGLOBIN 7.5 g/dL (12.0-16.0); LYMPHOCYTES # (AUTO) 0.9 K/uL (2.5-16.5); LYMPHOCYTES % (AUTO) 21.8 % (20.5-51.1); MEAN CORPUSCULAR HEMOGLOBIN 31 pg (27-31); MEAN CORPUSCULAR HGB CONC 33 g/dL (33-37); MEAN CORPUSCULAR VOLUME 95.8 fL (80-94); MONOCYTES # (AUTO) 0.4 K/uL (0.8-1.0); MONOCYTES % (AUTO) 9.7 % (1.7-9.3); NEUTROPHILS # (AUTO) 2.5 K/uL (1.8-7.7); NEUTROPHILS % (AUTO) 61.4 % (42.2-75.2); PLATELET COUNT (AUTO) 264 K/uL (140-450); RED BLOOD CELL COUNT(AUTO) 2.42 MIL/uL (4.20-5.40); RED CELL DISTRIBUTION WIDTH 15.5 % (11.6-13.7); WHITE BLOOD COUNT (AUTO) 4.1 K/uL (4.8-10.8)
[2018-12-04] MEDS: BLOOD GLUCOSE MONITORING 1 DEV DEV FS SCH (06:47)
--- NOTE | 2018-12-04 07:25 | NUR ---
PT SLEEPING, NO SIGNS OF DISTRESS, REPORT GIVEN TO RUDDY REID FOR CONTINUITY OF CARE.
--- NOTE | 2018-12-04 07:25 | NUR ---
RECEIVED PT REPORT FROM RADIOTELEGRAPHER NURSE, PT IS ASLEEP AT THIS TIME. IV LASIX DRIPPING 6 ML/HR VIA IV SITE ON PT'S R HAND, 22 GAUGE. NO S/S OF ACUTE DISTRESS NOTED. PT ON ROOM AIR, SKIN INTACT. CALL LIGHT IS WITHIN REACH. WILL CONTINUE TO MONITOR.
[2018-12-04 08:00] VITALS: BP 153/74
[2018-12-04] MEDS: hydrALAZINE 25 MG TAB PO SCH (09:36)
--- NOTE | 2018-12-04 10:19 | NUR ---
Bag Machine Helper Note: I met with patient at bedside to clarify her request of applying for [employer] on her own. Per patient, she does not want any assistance with applying for [employer]. She reported she will apply independently for [employer]. She told me she will not have difficulty paying for medical appointments and rx medication. No questions or concerns were reported by patient.
[2018-12-04] MEDS ORDERED: FURO-570 PO (11:43)
[2018-12-04] MEDS ORDERED: FERR324T11 PO (11:51)
--- NOTE | 2018-12-04 13:00 | NUR ---
PT NOTE 1258 Pt REFUSED TO PARTICIPATE WITH PT DUE TO DC TODAY; RN NOTIFIED.
--- NOTE | 2018-12-04 14:15 | NUR ---
PT HAS DISCHARGED. D/C INSTRUCTIONS WERE GIVEN, PT VERBALIZED UNDERSTANDING OF TEACHING, SIGNED D/C DOCUMENTS. IV SITE AND WRIST BAND WERE REMOVED. PT LEFT IN STABLE CONDITION WITH ALL HER BELONGINGS.
== END 2018-12-04 14:15 | disposition home or self-care (01) | DRG 682 ==
LOC: MED 14:25 → MTU 17:43
PROVIDERS: ADMIT General Practice; ATTEND General Practice
PROC: 0W9G3ZZ Drainage of Peritoneal Cavity, Percutaneous Approach (ICD-10-PCS; principal; 2018-12-02)
DX: N17.0 Acute kidney failure with tubular necrosis (principal); I50.43 Acute on chronic combined systolic (congestive) and diastolic (congestive) heart failure; E43 Unspecified severe protein-calorie malnutrition; E87.2 Acidosis; I13.0 Hypertensive heart and chronic kidney disease with heart failure and stage 1 through stage 4 chronic kidney disease, or unspecified chronic kidney disease; R18.8 Other ascites; E87.5 Hyperkalemia; G90.8 Other disorders of autonomic nervous system; N18.4 Chronic kidney disease, stage 4 (severe); E11.22 Type 2 diabetes mellitus with diabetic chronic kidney disease; E83.39 Other disorders of phosphorus metabolism; D63.8 Anemia in other chronic diseases classified elsewhere; E02 Subclinical iodine-deficiency hypothyroidism; R31.9 Hematuria, unspecified; Z79.899 Other long term (current) drug therapy; Z91.19 Patient's noncompliance with other medical treatment and regimen; Z68.35 Body mass index [BMI] 35.0-35.9, adult
CPT/HCPCS: 36415; 36600; 49083; 70450; 71045; 76604; 76705; 80048; 80053; 80305; 81001; 82150; 82272; 82550; 82570; 82803; 82945; 82948; 83036; 83540; 83605; 83615; 83690; 83735; 83880; 84100; 84157; 84436; 84443; 84484; 84703; 85025; 85610; 86886; 86900; 86901; 87070; 87075; 87081; 87086; 87205; 88305; 88313; 88342; 89051; 93005; 93880; 94640; 96374; 96375; 97116; 99285; C9113; J0360; J1644; J1815; J1940; J2001; J3490; J7030; J7060; J7613; P9046; Q0092